=== PATIENT | female | born 1965 | race Caucasian/White ===

== ENCOUNTER 2024-03-21 16:07 | Emergency (ER) | payer MEDICAID ==
[~2024-03-21] VITALS: Ht 170.2 cm; Wt 74.0 kg
[2024-03-21 16:11] VITALS: TEMP 98.9
[2024-03-21] MEDS: hydrALAZINE 25 MG tablet PO ONE (16:52)
[2024-03-21] MEDS: lisinopril 10 MG tablet PO ONE (16:52)
[2024-03-21] MEDS: ibuprofen tablet 400 MG TABLET PO ONE (18:03)
[2024-03-21] MEDS ORDERED: LISI20TA28 PO (18:05)
[2024-03-21 18:17] VITALS: BP 167/96; PULSE 82; RESP 14; O2SAT 96
== END 2024-03-21 18:21 | disposition home or self-care (01) ==
LOC: ER 16:08
DX: I10 Essential (primary) hypertension (principal); R51.9 Headache, unspecified; Z79.899 Other long term (current) drug therapy
CPT/HCPCS: 99284

== ENCOUNTER 2024-04-30 19:52 | Emergency (ER) | payer MEDICAID ==
[~2024-04-30] VITALS: Ht 170.2 cm; Wt 90.9 kg
[2024-04-30 20:50] LABS: ALANINE AMINOTRANSFERASE 56 U/L (12-78); ALBUMIN 2.2 G/DL (3.4-5.0); ALBUMIN/GLOBULIN RATIO 0.5 (1.1-1.5); ALKALINE PHOSPHATASE 46 IU/L (46-116); ANION GAP 7 (8-16); ASPARTATE AMINO TRANSFERASE 44 U/L (10-37); BILIRUBIN,TOTAL 0.3 MG/DL (0.1-1.0); BLOOD UREA NITROGEN 17 MG/DL (7-18); BUN/CREATININE RATIO 19.3 (10.0-20.0); CALCIUM 8.6 MG/DL (8.5-10.1); CHLORIDE 102 MMOL/L (99-107); CREATININE 0.88 MG/DL (0.40-0.90); GLUCOSE 117 MG/DL (70-104); POTASSIUM 3.9 MMOL/L (3.5-5.1); SODIUM 134 MMOL/L (135-145); TOTAL CARBON DIOXIDE 25.2 MMOL/L (24-32); TOTAL PROTEIN 6.5 G/DL (6.4-8.2); eCRCL 69 ML/MIN; eGFR 66 ML/MIN
[2024-04-30 20:57] LABS: LIPASE 96 U/L (16-77); PRO BRAIN NATRIURETIC PEPTIDE 254 PG/ML (0-125)
[2024-04-30 21:17] LABS: EOSINOPHILS # (AUTO) 0.1 X10'3 (0-0.9); LYMPHOCYTES # (AUTO) 1.9 X10'3 (1.1-4.8)
[2024-04-30 21:19] LABS: BASOPHILS # (AUTO) 0.1 X10'3 (0-0.2); BASOPHILS % (AUTO) 0.6 % (0-1); EOSINOPHILS % (AUTO) 1.2 % (0-6); HEMATOCRIT 39.1 % (35.0-45.0); LYMPHOCYTES % (AUTO) 19.4 % (21-51); MEAN CORPUSCULAR HGB CONC 33.3 g/dL (33.0-36.5); MEAN PLATELET VOLUME 8.9 FL (7.4-10.4); MONOCYTES # (AUTO) 0.5 X10'3 (0-0.9); MONOCYTES % (AUTO) 4.9 % (2-12); NEUTROPHILS # (AUTO) 7.1 X10'3 (1.8-7.7); NEUTROPHILS % (AUTO) 73.9 % (42-75); RED BLOOD COUNT 4.08 X10'6 (4.20-5.60); RED CELL DISTRIBUTION WIDTH 14.6 % (11.5-14.5); WHITE BLOOD COUNT 9.7 X10'3 (4.5-11.0)
[2024-04-30 21:23] LABS: PLATELET COUNT 194 X10'3 (140-440)
[2024-05-01 08:48] VITALS: TEMP 98.6
[2024-05-01 10:50] VITALS: BP 172/100; PULSE 83; RESP 16; O2SAT 97
== END 2024-05-01 15:33 | disposition home or self-care (01) ==
LOC: ER 19:52
DX: N39.0 Urinary tract infection, site not specified (principal); R41.82 Altered mental status, unspecified; K52.9 Noninfective gastroenteritis and colitis, unspecified; R07.89 Other chest pain
CPT/HCPCS: 36415; 71045; 80053; 83690; 83880; 84484; 85025; 93005; 99285